=== PATIENT | female | born 1940 | race Caucasian/White ===

== ENCOUNTER → 2019-06-15 | Outpatient (CLI) | payer MEDICARE ==
[2019-06-14 11:49] LABS: BASOPHILS # (AUTO) 0.02 x10^3/uL (0-0.1); BASOPHILS % (AUTO) 0 % (0-1); EOSINOPHILS # (AUTO) 0.15 x10^3/uL (0-0.4); EOSINOPHILS % (AUTO) 2 % (1-7); LYMPHOCYTES # (AUTO) 1.29 x10^3/uL (1-3.4); LYMPHOCYTES % (AUTO) 18 % (22-44); MD NO; MEAN CORPUSCULAR HEMOGLOBIN 31.3 pg (27.0-34.8); MEAN CORPUSCULAR HGB CONC 32.4 g/dL (32.4-35.8); MEAN CORPUSCULAR VOLUME 96.7 fL (80-100); MEAN PLATELET VOLUME 10.1 fL (7.4-10.4); MONOCYTES # (AUTO) 0.77 x10^3/uL (0.2-0.8); MONOCYTES % (AUTO) 11 % (2-9); NEUTROPHILS # (AUTO) 4.87 x10^3/uL (1.8-6.8); NEUTROPHILS % (AUTO) 69 % (42-75); PLATELET COUNT 183 x10^3/uL (130-400); RED BLOOD COUNT 3.62 x10^6/uL (3.82-5.3); RED CELL DISTRIBUTION WIDTH 14.1 % (9.6-15.2)
[2019-06-14 12:00] LABS: ALANINE AMINOTRANSFERASE 9 U/L (12-78); ALBUMIN 3.3 g/dL (3.4-5.0); ANION GAP 5 mmol/L (5-15); CALCIUM 8.9 mg/dL (8.5-10.1); CHLORIDE 104 mmol/L (98-107); CREATININE 1.19 mg/dL (0.55-1.02)
[2019-06-14 12:03] LABS: ALKALINE PHOSPHATASE 96 U/L (45-117); BILIRUBIN,TOTAL 0.4 mg/dL (0.2-1.0); TOTAL PROTEIN 7.5 g/dL (6.4-8.2)
[~2019-06-15] VITALS: Ht 149.9 cm; Wt 93.2 kg
[~2019-06-15] MED LIST: AMIT10TA PO; AMIT25TA PO; APIX5TAB PO; ASPI-515 PO; CEFD300C37 PO; CITA40TA5 PO; CYCL-259 PO; DIPH25TA50 PO; GABA-826 PO; GEMF600T8 PO; HYDR-3240 PO; IRON PO; LOVA10TA PO; METF500T17 PO; MIDO2.5T PO; OMEG1CAP23 PO; OMEP10CA5 PO; RANI25VI2 PO; SERT100T PO; SITA50TA PO; SODI650T PO; TRAM50TA2 PO; VITAMIN B12 PO
== END | disposition home or self-care (01) ==
LOC: OUT 08:00 → EDSTATUS 10:30
PROVIDERS: ATTEND Internal Medicine Gastroenterology
DX: Z11.59 Encounter for screening for other viral diseases (principal); D64.9 Anemia, unspecified
CPT/HCPCS: 36415; 80053; 85025; 93005; U0001

== ENCOUNTER 2019-07-27 07:05 | Day surgery (SDC) | payer MEDICARE ==
[~2019-07-27] VITALS: Ht 149.9 cm; Wt 96.4 kg
[2019-07-27] MEDS ORDERED: CHLORHEXIDINE 15 ML UDC ONE (07:31)
[2019-07-27 07:44] VITALS: BP 158/80
[2019-07-27] MEDS ORDERED: LACTATED RINGERS 1,000 ML IV SCH (07:44)
[2019-07-27] MEDS ORDERED: CHLORHEXIDINE 15 ML UDC MM ONE (08:00)
[2019-07-27] MEDS ORDERED: PROPOFOL 10 MG/ML, 50ML ONE (08:25)
[2019-07-27] MEDS ORDERED: HYDROmorphone 1 MG/ML, 1ML INJ IVPush PRN (09:00)
[2019-07-27] MEDS ORDERED: ONDANSETRON 2MG/ML, 2ML IVPush PRN (09:00)
[2019-07-27] MEDS ORDERED: EPHEDRINE 50 MG/ML, 1ML IVPush PRN (09:00)
[2019-07-27] MEDS ORDERED: hydrALAzine 20 MG/ML, 1ML IV PRN (09:00)
[2019-07-27] MEDS ORDERED: DIPHENHYDRAMINE 50 MG/ML, 1ML IVPush PRN (09:00)
[2019-07-27] MEDS ORDERED: ALBUTEROL SULFATE 2.5 MG/3 ML NPPB PRN (09:00)
[2019-07-27] MEDS ORDERED: PROMETHAZINE 25 MG/ML, 1ML IVPush PRN (09:00)
[2019-07-27] MEDS ORDERED: MEPERIDINE/PF 25MG/0.5ML IVPush PRN (09:00)
[2019-07-27] MEDS ORDERED: FENTANYL PF 100 MCG/2ML IV PRN (09:00)
[2019-07-27] MEDS ORDERED: OXYcodone 5 MG/5 ML ORAL.SOL UDC PO PRN (09:00)
[2019-07-27] MEDS ORDERED: LABETALOL 5MG/ML, 20ML IV PRN (09:00)
[2019-07-27] MEDS ORDERED: PROMETHAZINE 12.5 MG SUPP PR PRN (09:00)
== END 2019-07-27 10:30 | disposition home or self-care (01) ==
LOC: OUT 07:05
PROVIDERS: ATTEND Internal Medicine
DX: D64.9 Anemia, unspecified (principal); Z11.59 Encounter for screening for other viral diseases; K92.1 Melena; J44.9 Chronic obstructive pulmonary disease, unspecified; I10 Essential (primary) hypertension; F41.9 Anxiety disorder, unspecified; E11.9 Type 2 diabetes mellitus without complications; E66.01 Morbid (severe) obesity due to excess calories; Z79.01 Long term (current) use of anticoagulants; Z79.84 Long term (current) use of oral hypoglycemic drugs; Z79.899 Other long term (current) drug therapy; Z86.718 Personal history of other venous thrombosis and embolism; Z87.891 Personal history of nicotine dependence
CPT/HCPCS: 43239; 45378; 82962; 87635; 88305; J2704; J7120

== ENCOUNTER → 2019-10-28 | Outpatient (CLI) | payer MEDICARE | END | disposition home or self-care (01) | LOC: STAR 15:13 | PROVIDERS: ATTEND Anesthesiology | DX: Z20.828 Contact with and (suspected) exposure to other viral communicable diseases (principal) | CPT/HCPCS: 36415; 87635 ==

== ENCOUNTER 2019-11-01 07:18 | Day surgery (SDC) | payer MEDICARE ==
[~2019-11-01] VITALS: Ht 149.9 cm; Wt 96.9 kg
[2019-11-01] MEDS ORDERED: LACTATED RINGERS 1,000 ML IV SCH (07:44)
[2019-11-01 07:56] VITALS: BP 165/89
[2019-11-01] MEDS ORDERED: CHLORHEXIDINE 15 ML UDC MM ONE (08:00)
[2019-11-01] MEDS ORDERED: LIDOCAINE-MPF 1%, 2ML INFIL ONE (08:00)
[2019-11-01 08:35] LABS: ALANINE AMINOTRANSFERASE 9 U/L (12-78); ALBUMIN 3.7 g/dL (3.4-5.0); ANION GAP 7 mmol/L (5-15); CALCIUM 9.6 mg/dL (8.5-10.1); CHLORIDE 106 mmol/L (98-107)
[2019-11-01 08:37] LABS: ALKALINE PHOSPHATASE 91 U/L (45-117); BILIRUBIN,TOTAL 0.3 mg/dL (0.2-1.0); CREATININE 1.15 mg/dL (0.55-1.02)
[2019-11-01 08:49] LABS: BASOPHILS # (AUTO) 0.02 x10^3/uL (0-0.1); BASOPHILS % (AUTO) 0 % (0-1); EOSINOPHILS # (AUTO) 0.16 x10^3/uL (0-0.4); EOSINOPHILS % (AUTO) 2 % (1-7); LYMPHOCYTES # (AUTO) 1.66 x10^3/uL (1-3.4); LYMPHOCYTES % (AUTO) 18 % (22-44); MD NO; MEAN CORPUSCULAR HEMOGLOBIN 29.4 pg (27.0-34.8); MEAN CORPUSCULAR HGB CONC 31.9 g/dL (32.4-35.8); MONOCYTES # (AUTO) 0.89 x10^3/uL (0.2-0.8); MONOCYTES % (AUTO) 10 % (2-9); NEUTROPHILS # (AUTO) 6.41 x10^3/uL (1.8-6.8); NEUTROPHILS % (AUTO) 70 % (42-75); PLATELET COUNT 194 x10^3/uL (130-400); RED BLOOD COUNT 4.25 x10^6/uL (3.82-5.3)
[2019-11-01] MEDS ORDERED: PROPOFOL 10 MG/ML, 50ML ONE (09:14)
== END 2019-11-01 11:10 | disposition home or self-care (01) ==
LOC: OUT 07:18
PROVIDERS: ATTEND Internal Medicine Geriatric Medicine
DX: K92.2 Gastrointestinal hemorrhage, unspecified (principal); E78.5 Hyperlipidemia, unspecified; J45.909 Unspecified asthma, uncomplicated; I10 Essential (primary) hypertension; E11.9 Type 2 diabetes mellitus without complications; K21.9 Gastro-esophageal reflux disease without esophagitis; Z90.710 Acquired absence of both cervix and uterus; Z98.890 Other specified postprocedural states; Z87.891 Personal history of nicotine dependence; Z79.899 Other long term (current) drug therapy; Z79.01 Long term (current) use of anticoagulants; Z86.711 Personal history of pulmonary embolism; Z82.49 Family history of ischemic heart disease and other diseases of the circulatory system
CPT/HCPCS: 44799; 80053; 82962; 85025; 93005; J2704; J7120

== ENCOUNTER 2020-10-01 18:44 | Inpatient (IN) | payer MEDICARE ==
[~2020-10-01] VITALS: Ht 147.3 cm; Wt 101.6 kg
[~2020-10-01 18:44] MED LIST changes: -ASPI-515 PO; +ASPI-963 PO; -CYCL-259 PO; +CYCL10TA2 PO; +GEMF-31 PO; -GEMF600T8 PO; +HYDR-2214 PO; -HYDR-3240 PO
[2020-10-01] MEDS ORDERED: ASPIRIN 81 MG TABLET CHEW PO ONE (19:00)
[2020-10-01] MEDS ORDERED: SODIUM CHLORIDE FLUSH 10ML SYR IVF ONE (19:00)
--- NOTE | 2020-10-01 19:26 | NUR ---
biba from home for dizziness and MGLF. -LOC, no trauma/midline cervical tenderness. NEURO INTACT, PT A&O, RESPS EVEN AND UNLABORED, NADN.
[2020-10-01 19:37] LABS: BASOPHILS % (AUTO) 1 % (0-1); EOSINOPHILS % (AUTO) 2 % (1-7); LYMPHOCYTES % (AUTO) 19 % (22-44); MEAN CORPUSCULAR HEMOGLOBIN 24.7 pg (27.0-34.8); MEAN CORPUSCULAR HGB CONC 31.2 g/dL (32.4-35.8); MEAN PLATELET VOLUME 9.7 fL (7.4-10.4); MONOCYTES % (AUTO) 13 % (2-9); NEUTROPHILS % (AUTO) 65 % (42-75); PLATELET COUNT 220 x10^3/uL (130-400); RED BLOOD COUNT 3.25 x10^6/uL (3.82-5.3); RED CELL DISTRIBUTION WIDTH 16.7 % (9.6-15.2)
[2020-10-01 19:48] LABS: ALBUMIN 3.3 g/dL (3.4-5.0); ANION GAP 8 mmol/L (5-15); CALCIUM 8.8 mg/dL (8.5-10.1); CHLORIDE 101 mmol/L (98-107)
[2020-10-01 19:53] LABS: ALANINE AMINOTRANSFERASE 9 U/L (12-78); ALKALINE PHOSPHATASE 93 U/L (45-117); BILIRUBIN,TOTAL 0.1 mg/dL (0.2-1.0); CREATININE 1.58 mg/dL (0.55-1.02); TOTAL PROTEIN 7.3 g/dL (6.4-8.2); TROPONIN I < 0.015 ng/mL (0.000-0.045)
[2020-10-01] MEDS ORDERED: ENOXAPARIN 30 MG/0.3 ML SQ ONE (21:30)
--- NOTE | 2020-10-01 22:02 | NUR ---
PT REFUSING STRAIGHT CATH FOR UA, AWARE OF NEEDED SAMPLE.
[2020-10-01 22:37] VITALS: BP 149/77
[2020-10-01] MEDS ORDERED: DOCUSATE 100 MG CAPSULE PO PRN (23:00)
[2020-10-01] MEDS: MECLIZINE CHEWABLE 25 MG TAB PO SCH (23:00)
[2020-10-01] MEDS ORDERED: MELATONIN 5 MG TABLET PO PRN (23:00)
[2020-10-01] MEDS ORDERED: PHARMACY MAY ADJ FOR RENAL FX MC PRN (23:30)
[2020-10-02] MEDS ORDERED: ENOXAPARIN 30 MG/0.3 ML ONE (01:37)
[2020-10-02] MEDS ORDERED: ASPIRIN 81 MG TABLET CHEW ONE (01:37)
[2020-10-02 01:50] LABS: TROPONIN I < 0.015 ng/mL (0.000-0.045)
[2020-10-02 02:00] VITALS: BP 149/82
[2020-10-02 07:42] VITALS: BP 120/68
[2020-10-02] MEDS: MECLIZINE CHEWABLE 25 MG TAB PO SCH ×3 (09:00→20:23)
[2020-10-02 09:16] LABS: BASOPHILS % (AUTO) 1 % (0-1); EOSINOPHILS % (AUTO) 4 % (1-7); LYMPHOCYTES % (AUTO) 31 % (22-44); MEAN CORPUSCULAR HEMOGLOBIN 24.3 pg (27.0-34.8); MEAN CORPUSCULAR HGB CONC 30.7 g/dL (32.4-35.8); MEAN PLATELET VOLUME 9.4 fL (7.4-10.4); MONOCYTES % (AUTO) 13 % (2-9); NEUTROPHILS % (AUTO) 51 % (42-75); PLATELET COUNT 201 x10^3/uL (130-400); RED BLOOD COUNT 3.32 x10^6/uL (3.82-5.3); RED CELL DISTRIBUTION WIDTH 16.6 % (9.6-15.2)
[2020-10-02 09:28] LABS: ANION GAP 6 mmol/L (5-15); CALCIUM 8.8 mg/dL (8.5-10.1); CHLORIDE 106 mmol/L (98-107); CREATININE 1.27 mg/dL (0.55-1.02); IRON LEVEL 20 mcg/dL (50-170)
[2020-10-02 09:34] LABS: % IRON SATURATION 3 % (20-55); TOTAL IRON BINDING CAPACITY 615 mcg/dL (250-450); TROPONIN I < 0.015 ng/mL (0.000-0.045)
[2020-10-02] MEDS ORDERED: ENOXAPARIN 30 MG/0.3 ML SQ SCH (12:00)
[2020-10-02 12:17] LABS: MICROSCOPIC AUTO
[2020-10-02] MEDS ORDERED: CYANOCOBALAMIN 1,000 MCG/ML, 1ML IM ONE (14:30)
[2020-10-02] MEDS ORDERED: EPINEPHRINE 1 MG/ML, 1ML SQ PRN (15:00)
[2020-10-02] MEDS ORDERED: IRON DEXTRAN COMPLEX 25 MG in SODIUM CHLORIDE 0.9% 50 ML IV ONE (15:00)
[2020-10-02 15:03] LABS: ABSOLUTE RETICS # 0.073 x10^6/uL (0.5-2.5); RED BLOOD COUNT 3.3 x10^6/uL (3.82-5.3); RETICULOCYTE COUNT % 2.21 % (0.5-1.5)
[2020-10-02] MEDS ORDERED: SODIUM CHLORIDE 0.9% IV ONE (16:00)
[2020-10-02] MEDS ORDERED: IRON DEXTRAN COMPLEX IV ONE (16:00)
[2020-10-02 16:19] VITALS: BP 167/73
[2020-10-02 20:06] VITALS: BP 146/74
[2020-10-02] MEDS ORDERED: morphine SULFATE 10 MG/ML, 1ML ONE ×2 (23:28→23:31)
[2020-10-02] MEDS ORDERED: MORPHINE SULFATE 4 MG/ML, 1ML IVPush ONE (23:30)
[2020-10-03] VITALS (16 sets, daily range): BP systolic 81–149; BP diastolic 45–80
[2020-10-03] MEDS ORDERED: AMITRIPTYLINE 10 MG TABLET ONE (03:14)
[2020-10-03] MEDS ORDERED: AMITRIPTYLINE 10 MG TABLET PO PRN (03:30)
--- NOTE | 2020-10-03 04:29 | NUR ---
DARIUS ELLIOTT - Fall Risk Medication(s) present and receiving anticoagulants.
[2020-10-03] MEDS: MECLIZINE CHEWABLE 25 MG TAB PO SCH ×2 (08:04→15:16)
[2020-10-03 08:58] LABS: OCCULT BLOOD NEGATIVE (NEGATIVE)
[2020-10-03] MEDS ORDERED: CYANOCOBALAMIN 1,000 MCG TABLET PO SCH (09:00)
[2020-10-03] MEDS ORDERED: OMNIPAQUE 350 MG/ML, 75ML BOTTLE ONE (09:20)
[2020-10-03 09:45] LABS: ANION GAP 8 mmol/L (5-15); CALCIUM 8.9 mg/dL (8.5-10.1); CHLORIDE 102 mmol/L (98-107); CREATININE 1.04 mg/dL (0.55-1.02)
[2020-10-03] MEDS ORDERED: ENOXAPARIN 40 MG/0.4 ML SQ SCH ×2 (11:30→21:00)
[2020-10-03] MEDS ORDERED: VITAMIN B12 PO (14:56)
[2020-10-03] MEDS ORDERED: MIDO5TAB9 PO (14:56)
== END 2020-10-03 17:32 | disposition home health service (06) | DRG 682 ==
LOC: ED 21:00 → EDIP 22:11 → 4WST 22:28
PROVIDERS: ADMIT Internal Medicine; ATTEND Internal Medicine
PROC: 0T9B70Z Drainage of Bladder with Drainage Device, Via Natural or Artificial Opening (ICD-10-PCS; principal; 2020-10-02)
DX: N17.0 Acute kidney failure with tubular necrosis (principal); J96.20 Acute and chronic respiratory failure, unspecified whether with hypoxia or hypercapnia; Z68.42 Body mass index [BMI] 45.0-49.9, adult; K55.20 Angiodysplasia of colon without hemorrhage; D50.9 Iron deficiency anemia, unspecified; E11.22 Type 2 diabetes mellitus with diabetic chronic kidney disease; E53.8 Deficiency of other specified B group vitamins; E66.01 Morbid (severe) obesity due to excess calories; E78.5 Hyperlipidemia, unspecified; J43.9 Emphysema, unspecified; N18.30 Chronic kidney disease, stage 3 unspecified; I95.1 Orthostatic hypotension; Z20.822 Contact with and (suspected) exposure to COVID-19; R42 Dizziness and giddiness; Z86.711 Personal history of pulmonary embolism; Z87.891 Personal history of nicotine dependence; Z90.710 Acquired absence of both cervix and uterus
CPT/HCPCS: 36415; 71045; 71275; 80048; 80053; 81001; 82272; 82607; 82728; 83036; 83540; 83550; 83735; 83880; 84443; 84484; 85025; 85045; 85379; 87086; 93005; 93306; 93356; 96372; 99285; G0378; J1650; J1750; Q9967; U0005; J2270; J3420; J7050; U0003